=== PATIENT | female | born 1985 | race African-American/Black ===

== ENCOUNTER 2018-09-12 06:37 | Inpatient (IN) ==
[2018-09-12 07:04] LABS: BE 1.1 mmoll (-3.0-3.0); BLOOD TYPE ARTERIAL; HCO3-(ACT) 25.5 mmoll (20.0-26.0); METHB 1.1 % (0.0-1.5); O2(CT) 15.2 mL/dL (15.0-23.0); PCO2(98.6) 45 mmHg (35-45); PO2(98.6) 57 mmHg (60-100); SAMPLE BLOOD; SAO2 93.6 % (95.0-100.0); THB 12.8 g/dL (11.5-17.4); pH(98.6) 7.38 (7.35-7.45)
[2018-09-12 07:07] LABS: ALLEN TEST NO; MODALITY ROOM AIR
[2018-09-12 07:09] LABS: BASO# 0.02 X1000 (0.0-0.2); BASO% 0.3 % (0.0-0.8); EOS# 0.28 X1000 (0.0-0.7); EOS% 4.5 % (0.0-10.0); HEMATOCRIT 39.1 % (37.0-47.0); HEMOGLOBIN 12.6 g/dL (12.0-16.0); IMM GRAN# 0.01 X1000 (0.0-0.04); IMM GRAN% 0.2 % (0.0-0.5); LYMPH% 44.7 % (20.5-51.1); MCH 27.3 PG (27-31); MCHC 32.2 g/dL (33-37); MCV 84.8 FL (81-99); MONO# 0.44 X1000 (0.11-0.59); MPV 9.7 FL (7.4-10.4); NEUT# 2.72 X1000 (1.4-6.5); NEUT% 43.3 % (42.2-75.2); PLT 328 X1000 (130-400); RBC 4.61 XMIL (4.2-5.4); RDW 14.3 % (11.5-14.5); WBC 6.27 X1000 (4.8-10.8)
[2018-09-12 07:10] LABS: O2HB 84.5 % (95.0-99.0)
[2018-09-12 07:11] LABS: BILIRUBIN URINE NEGATIVE (NEGATIVE); BLOOD URINE NEGATIVE (NEGATIVE); CLARITY CLEAR (CLEAR); COLOR YELLOW; GLUCOSE URINE NEGATIVE (NEGATIVE); KETONE URINE NEGATIVE (NEGATIVE); LEUKOCYTES URINE TRACE (NEGATIVE); NITRITE URINE NEGATIVE (NEGATIVE); PH URINE 6.5; PROTEIN URINE NEGATIVE (NEGATIVE); UROBILINOGEN URINE NORMAL
[2018-09-12 07:17] LABS: URINE BACTERIA NEGATIVE /HFP; URINE CAST NONE SEEN /LPF; URINE CRYSTAL NONE SEEN /HPF; URINE EPITHELIAL CELLS <10 /HPF (<10); URINE RBC <10 /HPF (<10); URINE SOURCE CATH; URINE WBC <10 /HPF (<10); URINE YEAST NONE SEEN /HPF
[2018-09-12 07:18] LABS: UR AMPHETAMINES QUAL NONE DETECTED (NONE DETECT); UR BARBITUATES QUAL NONE DETECTED (NONE DETECT); UR BENZODIAZEPIN QUAL NONE DETECTED (NONE DETECT); UR CANNABINOIDS QUAL PRESUMPTIVE POSITIVE (NONE DETECT); UR COCAINE QUAL PRESUMPTIVE POSITIVE (NONE DETECT); UR METHADONE QUAL NONE DETECTED (NONE DETECT); UR METHAMPHETAMINE QUAL NONE DETECTED (NONE DETECT); UR OPIATES QUAL NONE DETECTED (NONE DETECT); UR OXYCODONE QUAL NONE DETECTED (NONE DETECT); UR PCP QUAL NONE DETECTED (NONE DETECT); UR PROPOXYPHENE QUAL NONE DETECTED (NONE DETECT); UR TCA QUAL NONE DETECTED (NONE DETECT)
[2018-09-12 07:24] LABS: AGAP 10; ALBUMIN 4.2 g/dL (3.5-5.0); ALKALINE PHOSPHATASE 74 U/L (32-104); BUN 7 mg/dL (8-22); CALCIUM 8.8 mg/dL (8.8-10.2); CHLORIDE 103 mmol/L (98-107); COSMO 275; GLUCOSE 97 mg/dL (70-104); GOT 17 U/L (10-30); GPT 12 U/L (10-36); POTASSIUM 3.6 mmol/L (3.5-5.1); SODIUM 139 mmol/L (136-145); TCO2 27 mmol/L (25-35); TOTAL PROTEIN 7.4 g/dL (6.3-8.3)
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
--- NOTE | 2018-09-12 11:22 | ED EKG INTERP ---
This chart was entered by Keturah Lomeli Scribe, acting as scribe for Edmond Livingston MD. EKG Interpretation - EKG Time of EKG reading by physician:: 08:08 EKG Read and Signed by:: Edmond Livingston EKG Interpretation (*Must complete 3 of following elements*): Abnormal (consider anterior ischemia) Rate: 91 Rhythm: normal sinus QRS: normal ST Wave: non-specific ST changes Attestation - Physician/ JESSENIA Attestation Patient care was provided by Advanced Practice Provider:: No The physician spent face to face time with patient:: Yes Advanced Practice Provider documentation review:: Supervising physician onsite and consulted in the evaluation and care of this patient. The physician did have a face to face encounter with the patient. This chart was documented by the indicated scribe, (Keturah Lomeli Scribe) and accurately reflects the services I performed and decisions made by me, Edmond Livingston MD, as attested by the provider's signature.
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
[2018-09-12] MEDS ORDERED: DUONEB (A & A) INH ONE (12:58)
[2018-09-12] MEDS ORDERED: TYLENOL PO PRN (13:30)
[2018-09-12] MEDS ORDERED: DUONEB (A & A) INH PRN (13:34)
[2018-09-12] MEDS ORDERED: SOLU-MEDROL IV ONE (13:38)
[2018-09-12] MEDS ORDERED: ROCEPHIN 1 GM in NS 50 ML IV SCH (13:45)
[2018-09-12] MEDS: NS 1,000 ML IV SCH (14:20)
[2018-09-12] MEDS: ZITHROMAX PO SCH (14:25)
[2018-09-12] MEDS: DUONEB (A & A) INH SCH ×3 (15:38→23:44)
--- NOTE | 2018-09-12 16:24 | EKG Report ---
Test Performed on : 09/12/2018 08:08:34 AM Test Reason : overdose Blood Pressure : / mmHG Vent. Rate : 091 BPM Atrial Rate : 091 BPM P-R Int : 184 ms QRS Dur : 086 ms QT Int : 392 ms P-R-T Axes : 062 046 056 degrees QTc Int : 482 ms Normal sinus rhythm. T wave abnormality, consider anterior ischemia Abnormal ECG No previous ECGs available Unconfirmed Result
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
[2018-09-13] MEDS: DUONEB (A & A) INH SCH ×5 (04:12→19:56)
[2018-09-13] MEDS: NS 1,000 ML IV SCH ×2 (05:12→17:23)
[2018-09-13 06:07] LABS: HEMATOCRIT 38.8 % (37.0-47.0); HEMOGLOBIN 12.6 g/dL (12.0-16.0); MCH 27.8 PG (27-31); MCHC 32.5 g/dL (33-37); MCV 85.7 FL (81-99); MPV 9.7 FL (7.4-10.4); RBC 4.53 XMIL (4.2-5.4); RDW 14.5 % (11.5-14.5); WBC 8.15 X1000 (4.8-10.8)
[2018-09-13 06:12] LABS: AGAP 10; BUN 7 mg/dL (8-22); CALCIUM 9.1 mg/dL (8.8-10.2); CHLORIDE 107 mmol/L (98-107); COSMO 283; CREATININE 0.8 mg/dL (0.5-0.9); ESTIMATED GFR > 60; GLUCOSE 92 mg/dL (70-104); POTASSIUM 3.9 mmol/L (3.5-5.1); SODIUM 143 mmol/L (136-145); TCO2 26 mmol/L (25-35)
[2018-09-13] MEDS: PRILOSEC PO SCH (07:10)
--- NOTE | 2018-09-13 07:45 | Diag Imaging Result Doc PS360 ---
CHEST-2 VIEWS - 09/13/2018 INDICATION: hypoxia COMPARISON: None FINDINGS: The lungs are normally expanded and clear. Heart size and mediastinal contours are normal. No pneumothorax or pleural effusion. IMPRESSION: Negative exam. Electronically signed by Hans Willis 09/13/2018 7:42 AM
[2018-09-13] MEDS: ZITHROMAX PO SCH (08:53)
[2018-09-13] MEDS ORDERED: FLAGYL PO ONE (15:58)
[2018-09-13] MEDS ORDERED: ROCEPHIN IM ONE (15:58)
[2018-09-13] MEDS ORDERED: XYLOCAINE-MPF 1% INJ ONE (15:58)
--- NOTE | 2018-09-14 00:34 | PROGRESS NOTE ---
DATE: 09/13/2018 SUBJECTIVE: Patient notes that she is still having cough productive of brownish sputum. Denies fevers or chills. Denies any chest pain or palpitations. States she does not quite feel back to her home self, although states she is much more awake, alert. PHYSICAL EXAM: Vital signs: Temperature 98, pulse 91, respiratory 18, BP 107/63. General: Patient is awake, currently in no distress. Pleasant to talk with. HEENT: Normocephalic. Neck: Supple. Cardiovascular: Regular rate. Chest: Clear. Abdomen: Soft, nondistended. Extremities: Moves all extremities. ASSESSMENT: 1. Acute altered mental status, appears to be resolved. 2. Others. PLAN: We will continue patient in the hospital. Continue supportive care. Get Physical Therapy involved. Further orders as needed. cc: Basim James MD
--- NOTE | 2018-09-14 00:38 | PROGRESS NOTE ---
DATE: 09/13/2018 SUBJECTIVE: Patient notes that overall she is starting to feel better. Still having a productive cough with some brownish sputum. Denies any fevers, chills. Denies any dysuria or frequency. Denies any bleeding or bruising. OBJECTIVE: Vital signs: Temperature 98, pulse 91, respiratory 18, BP 107/63. General: Patient is very pleasant to talk with. HEENT: Normocephalic. Neck: Supple. Cardiovascular: Regular rate. Lungs: No current crackles in her lungs. Chest clear. Abdomen: Soft. ASSESSMENT: 1. Altered mental status, appears resolved. Most likely secondary to polysubstance use. 2. Polysubstance abuse. 3. Recent history of pneumonia with no evidence the patient picked up her medications. 4. Medical noncompliance. PLAN: We will continue patient in the hospital. She is currently in ICU. We will transfer her to the floor. Continue antibiotics. Did discuss with patient that it is unacceptable to raise her voice at people that are attempting to help her. Hopefully, she will decide to get her life back and quit using and abusing substances. cc: Basim James MD
[2018-09-14] MEDS: DUONEB (A & A) INH SCH ×2 (04:44→08:15)
[2018-09-14] MEDS: PRILOSEC PO SCH (06:48)
[2018-09-14 07:14] LABS: HEMATOCRIT 37.4 % (37.0-47.0); MCH 27.5 PG (27-31); MCHC 32.1 g/dL (33-37); MCV 85.8 FL (81-99); MPV 10.2 FL (7.4-10.4); RBC 4.36 XMIL (4.2-5.4); RDW 14.6 % (11.5-14.5); WBC 5.6 X1000 (4.8-10.8)
[2018-09-14 08:24] VITALS: BP 132/100
[2018-09-14 08:24] LABS: AGAP 11; BUN 5 mg/dL (8-22); CALCIUM 8.6 mg/dL (8.8-10.2); CHLORIDE 107 mmol/L (98-107); COSMO 280; CREATININE 0.8 mg/dL (0.5-0.9); ESTIMATED GFR > 60; GLUCOSE 92 mg/dL (70-104); POTASSIUM 3.5 mmol/L (3.5-5.1); SODIUM 142 mmol/L (136-145); TCO2 24 mmol/L (25-35)
[2018-09-14] MEDS: ZITHROMAX PO SCH (08:33)
[2018-09-14] MEDS ORDERED: OMNICEF PO SCH (09:00)
--- NOTE | 2018-09-14 09:37 | Diag Imaging Result Doc PS360 ---
EXAM: CHEST-2 VIEWS - 09/14/2018 HISTORY: hypoxia TECHNIQUE: Chest two views COMPARISON: 09/13/2018 FINDINGS: Heart size is normal. The lungs appear clear. There is no pleural effusion or pneumothorax identified. IMPRESSION: No evidence of acute disease. Electronically signed by Edward Paulino 09/14/2018 9:35 AM
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
--- NOTE | 2018-09-15 17:13 | DISCHARGE SUMMARY ---
ADMISSION DATE: 09/12/2018 DISCHARGE DATE: 09/14/2018 ADDENDUM: SUBJECTIVE: Patient has no new complaints. Still having cough, congestion, increased production of her cough. Denies any increased work of breathing. PLAN: The patient overall has improved. Chest x-ray is negative for pneumonia. Therefore we will discharge her home on antibiotics for her acute bronchitis. Please see full note. cc: Basim James MD
== END 2018-09-14 10:00 | disposition home or self-care (01) | DRG 195 ==
LOC: EDBD → P.ED 06:37 → EDUNIT# 14:45 → P.ICU 14:45 → P.MEDSURG 09-13 13:55
PROVIDERS: ATTEND Family Medicine
CPT/HCPCS: 70450; 71020; 71046; 72125; 73562; 80048; 80053; 80104; 80301; 80305; 81001; 81025; 82805; 85025; 85027; 87040; 87088; 93005; 94640; 94761; 94799; 96365; 96375; 99285; A9270; G0431; G0434; G0477; J0696; J2920; J7030